=== PATIENT | female | born 1955 ===

== ENCOUNTER 2024-09-09 06:56 | Observation (INO) | payer BC, MEDICARE ==
[2024-09-03 11:37] LABS: Absolute Basophils 0.1 K/uL (0-0.5); Absolute Eosinophils 0.1 K/uL (0-0.5); Absolute Lymphocytes (CBC) 1.9 K/uL (0.7-4.9); Absolute Monocytes 0.8 K/uL (0.1-1.3); Basophils % 1.1 % (0-1.3); Eosinophils % 1.6 % (0-4.4); Hematocrit 40.3 % (36.0-45.0); Hemoglobin 13.2 g/dL (12.0-15.0); Lymphocytes % 27.7 % (15.3-44.8); MCH 28.7 pg (27.0-35.0); MCHC 32.8 g/dL (32.0-36.0); MCV 87.6 fL (80-100); MPV 8.7 fL (7.6-11.3); Monocytes % 11.4 % (3.3-12.3); Neutrophils % 58.2 % (41.7-73.7); Platelets 247 thou/uL (152-406)
[2024-09-03 11:37] LABS: Specific Gravity 1.007 (1.005-1.030); Urine Bilirubin NEGATIVE (Negative); Urine Blood Negative (Negative); Urine Clarity Clear (Clear); Urine Color Colorless (Yellow); Urine Glucose NEGATIVE (Negative); Urine Ketones NEGATIVE (Negative); Urine Microscopic Reflex YN NO UMIC; Urine Nitrite NEGATIVE (Negative); Urine Protein NEGATIVE (Negative); Urine Urobilinogen Normal (Normal)
[2024-09-03 11:46] LABS: PT Prothrombin Time 10.5 SECONDS (9.4-12.5); PTT, Activated Partial Thromb 33.2 SECONDS (24.3-36.9); Protime INR 0.94
[2024-09-03 11:51] LABS: Anion Gap 8.9 mEq/L (5.0-15.0); Potassium 3.9 mEq/L (3.5-5.1)
[2024-09-09] MEDS: CEFAZOLIN SODIUM 2 GM/VIAL ONE (07:35)
[2024-09-09] MEDS: Ringers Lactate 1,000 ML IV ONE ×2 (07:50→11:30)
[2024-09-09] MEDS ORDERED: ROCURONIUM 50 MG/5 ML VIAL IV ONE (08:10)
[2024-09-09] MEDS ORDERED: dexAMETHasone 10 MG/ML VIAL ONE (08:10)
[2024-09-09] MEDS ORDERED: LIDOCAINE 1% MPF 5 ML VIAL ONE (08:10)
[2024-09-09] MEDS ORDERED: ONDANSETRON 4 MG/2 ML VIAL ONE (08:10)
[2024-09-09] MEDS ORDERED: propofoL 200 MG/20 ML VIAL IV ONE (08:11)
[2024-09-09] MEDS ORDERED: FENTANYL CITR 100 MCG/2 ML ONE ×2 (08:11→11:35)
[2024-09-09] MEDS ORDERED: MIDAZOLAM HCL 2 MG/2 ML INJ ONE (08:11)
[2024-09-09] MEDS: NA CHLORIDE 0.9% 1,000 ML ONE (10:02)
[2024-09-09] MEDS: NS 0.9% VIAL 10 ML ONE (10:02)
[2024-09-09] MEDS: NA CHLORIDE 0.9% 100 ML ONE (10:04)
[2024-09-09] MEDS: VASOPRESSIN 20 UNIT/ML VIAL ONE ×2 (10:32→10:52)
[2024-09-09] MEDS: CEFAZOLIN SODIUM 1 GM/VIAL ONE (11:12)
[2024-09-09] MEDS ORDERED: EPHEDRINE SULF 50 MG/ML VIAL ONE (11:43)
[2024-09-09] MEDS ORDERED: MORPHINE 2 MG/ML SYR IV PRN (13:31)
[2024-09-09] MEDS ORDERED: PROMETHAZINE INJ 25 MG/ML AMP IV PRN (13:31)
[2024-09-09] MEDS: HYDROMORPHONE HCL 1 MG/ML INJ ONE (13:45)
[2024-09-09] MEDS: Ringers Lactate 2,000 ML IV ONE (14:19)
[2024-09-09 14:57] VITALS: BMI 21.9
[2024-09-09] MEDS: ACETAMINOPHEN 325 MG TABLET PO PRN (19:39)
--- NOTE | 2024-09-10 07:59 | OP ---
Date of Procedure: 09/09/2024 Surgeon: Blanca Abraham MD Advertising Copywriter: None. Preoperative Diagnoses: Posterior wall defect, defecatory dysfunction, and vaginal bulge symptoms. Postoperative Diagnoses: Posterior wall prolapse stage II, posterior enterocele, and perineocele. Procedures Performed: 1.Posterior wall defect repair with biologic graft augmentation. 2.Bilateral . 3.Posterior enterocele repair, perineocele repair, cystoscopy. Estimated Blood Loss: 200. Urine Output: 100. Fluids: 1600. Complications: No complications. Drains: Arreola catheter and vaginal packing. Findings: Pop-Q -3 -3 -8, 4.5, thin 11, +1 +1 -6. There was a significant attachment of the posteri or rectovaginal septum from the perineal body as well as the pericervical ring leaving a large entero rey in the proximal portion of the posterior wall. Indications: The patient is a 69-year-old with significant vaginal bulge symptoms, defecatory dysfun ction. After evaluating her in the office, we discussed about her posterior wall defect as the main compartment with loss of firm support, so discussed about a posterior wall repair with or without a b iologic graft augmentation depending on each of the connective tissue and the amount of connective ti ssue present. Sacrospinous fixation will be done if graft augmentation was required for anchoring an d posterior enterocele repair would be done also with graft augmentation and perineocele repair as ne eded. The patient understood the procedures including infection, injury to the bowel, bladder, and u reters, pelvic pain, back pain, buttock pain, dyspareunia. Catheterization was all reviewed and she was consented. She came in with her daughter in the preoperative area today. All questio ns and answers were done to their satisfaction. The patient was taken back to the OR. 2 g of Ancef were given. SCDs were placed. She was placed in supine fashion on the operating table and general a nesthesia was given. She was placed in dorsal lithotomy position using Anthony stirrups. The lower ab domen, medial thigh, vulva, vagina, and perineum were prepped and draped in a sterile fashion. Arreola catheter was placed to drain the bladder. A [place] retractor was used to keep the retraction wit h 4 sharp bend hooks was made in the distal posterior wall in a very narrow fashion and t hen the lower portion of this was on the perineum. On rectovaginal exam, there was significant perin eocele and significant posterior wall defect in the proximal half of the posterior wall. The plan wa s to excise the vaginal epithelium first and the perineal epithelium. The flaps were raised on both sides. Connective tissue was dissected and it was anchored in the lower 1/3 of the posterior compart ment. There was a scar from her episiotomy repair, likely in the right lateral aspect. This was als o noted that the perineal body had fallen apart for years together and so reconstruction need to be d one in order for me to reconstruct the perineum and create support. After dissecting the posterior compartment in the distal half, then the proximal half was dissected. There was significant bleeding from the vaginal wall vessels. These were sutured with the Vicryl velasco ture in a [id number] fashion for hemostasis. Then, dissection was performed after vasopressin w as injected in the midline to the apex near the pericervical ring. The posterior enterocele was diss ected completely free. Posterior enterocele was isolated from the posterior wall connective tissue and this was reduced with the help of a 3-0 Monocryl in a pursestring fashion. Posterior wall repair: The distal posterior wall was plicated to bring the connective tissue togethe r. Perineocele repair: The sheath of the external sphincter was closed in an interrupted fashion. Then , the dissection on the distal posterior wall was taken to the levators on the tract. Once these wer e exposed without injuring the levators, connective tissue was brought together to form a strong wilman edinson pocket and 3 layers of 2-0 Vicryl sutures were used to reconstruct the perineum. Bilateral sacrospinous fixation: 3-0 PDS sutures were placed, 1 in the midline of the cervix and 1 o n each distal uterosacral ligament. Then, the pararectal space was entered and the ischial spine was palpated and the sacrospinous ligament was cleaned by sweeping it posteriorly and once it was well e xposed on the left and the right Capio device was taken. Prolene suture was placed first in the mid ligament. However, I felt that it was very close to the bowel on the rectovaginal exam, s o this was removed and replaced to dissect the bowel more medially and placing the suture in the ante rior surface of the ligament without any difficulty. At least 2 fingerbreadths on medial and posteri or to the ischial spine, this was then held on the Mira clamp. Similar dissection was performed for the sacrospinous from opposite side and . A biologic graft was then taken and trimmed anteriorly vertical 6 cm . The intraspinous le ngth of the graft was longest at 8 cm and the PDS sutures were tied to the middle portion of the edenilson t. The proximal end and the sacrospinous sutures were then placed on the sacrospinous ligament and t ied down. This anchored the pericervical ring of the cervix to both sacrospinous ligament. The dist al posterior wall was trimmed slightly so that this could be incorporated with the recently built dis cooper posterior wall and the perineum. 2-0 PDS suture was used to close this. The grafts were slightly trimmed, but all the distal sutures were 2-0 PDS. Then posterior compartment fistula repair was done without 2-0 PDS in a continuous running fashion as well. Then vaginal epithelium was trimmed using a Mira clamp with a continuous running 2-0 Vicryl suture to the vestibule. Then, from here 3-0 Vicryl was used in a continuous running fashion down th e perineum and then back in a subcuticular fashion and inside the hymen. Rectal exam was negative. After changing gloves, Arreola was removed. Cystoscopy was performed with a 17-Maltese sheath, 30-degre e lens, and normal saline. Excellent jets of urine from both ureteric orifices. No evidence of any trauma to the bladder. The scope was removed. Bladder was drained. Arreola was replaced. Vaginal pa cking was inserted. Rectal exam was done and was negative. No complication. EBL 200. The patient will follow up in 7 to 10 days. She will have an appointment for a voiding trial sooner on if she is unable to void well. Her was . BRADFORD/GAURI Voice ID: [id number] Report ID: [id number]
[2024-09-10 08:11] VITALS: BP 110/57; TEMP 98.2
[2024-09-10 09:10] VITALS: O2SAT 100
== END 2024-09-10 10:15 | disposition home or self-care (01) ==
LOC: OR 06:56 → 4TH 13:56
PROVIDERS: ADMIT Obstetrics & Gynecology; ATTEND Obstetrics & Gynecology
PROC: 0JQC0ZZ Repair Pelvic Region Subcutaneous Tissue and Fascia, Open Approach (ICD-10-PCS; 2024-09-09)
PROC: 0USG0ZZ Reposition Vagina, Open Approach (ICD-10-PCS; 2024-09-09)
PROC: 0JUC0JZ Supplement of Pelvic Region Subcutaneous Tissue and Fascia with Synthetic Substitute, Open Approach (ICD-10-PCS; principal; 2024-09-09 08:00)
DX: N81.6 Rectocele (principal); N81.81 Perineocele
CPT/HCPCS: 57265; 57267; 57282; 85025; 80048; 36415; 86900 ×2; 86850 ×2; 85610; 86901 ×2; 85730; 81003; 94010; A4216; J2704; J2003; J2250; J3010 ×2; J1100; J1171; J2405; J7120 ×3; J7030; J0690; G0378; G0379